=== PATIENT | male | born 1955 | race African-American/Black ===

== ENCOUNTER 2019-07-25 17:23 | Emergency (ER) | payer OTHER ==
[2019-07-25] MEDS ORDERED: Tamsulosin HCl 0.4 MG CAP ONE (17:39)
[2019-07-25 18:10] LABS: Bilirubin Negative (Negative); Blood, Urine Trace (Negative); Clarity Clear (Clear); Glucose, Urine (Dipstick) Negative (Negative); Leukocyte Negative (Negative); Nitrite Negative (Negative); Protein, Urine (Dipstick) Negative (Neg-Trace); Urobilinogen 0.2 mg/dL (Less than 2)
[2019-07-25 18:14] LABS: Bacteria/HPF Rare-Few HPF (None Seen); Squamous Epithelial 0-3 HPF (0-3); WBC/HPF None Seen HPF (0-3)
[2019-07-25] MEDS ORDERED: Amlodipine 5 MG TAB ONE (18:20)
== END 2019-07-25 19:25 ==
LOC: MADERS 17:23
DX: R33.9 Retention of urine, unspecified (principal); I10 Essential (primary) hypertension; Z79.899 Other long term (current) drug therapy
CPT/HCPCS: 51701; 81003; 81015

== ENCOUNTER 2019-07-26 09:13 | Emergency (ER) | payer OTHER ==
[2019-07-26] MEDS ORDERED: Tamsulosin HCl 0.4 MG CAP ONE (10:16)
[2019-07-26 10:33] LABS: Bilirubin Negative (Negative); Blood, Urine Small (Negative); Glucose, Urine (Dipstick) Negative (Negative); Leukocyte Negative (Negative); Nitrite Negative (Negative); Protein, Urine (Dipstick) Negative (Neg-Trace); Urobilinogen 0.2 mg/dL (Less than 2)
[2019-07-26 10:34] LABS: Clarity Hazy (Clear)
[2019-07-26 10:38] LABS: Bacteria/HPF Rare-Few HPF (None Seen); RBC/HPF 21-50 HPF (0-3); Squamous Epithelial 0-3 HPF (0-3); WBC/HPF 0-3 HPF (0-3)
== END 2019-07-26 10:15 | disposition home or self-care (01) ==
LOC: MADERS 09:13
DX: N40.1 Benign prostatic hyperplasia with lower urinary tract symptoms (principal); N13.8 Other obstructive and reflux uropathy; R33.8 Other retention of urine; I10 Essential (primary) hypertension
CPT/HCPCS: 51702; 81001; 81003; 87086

== ENCOUNTER 2023-03-14 12:06 | Emergency (ER) | payer SELFPAY ==
[2023-03-14 13:28] LABS: Anion Gap 18 mmol/L (10-20); BUN (Urea Nitrogen) 26 mg/dL (8.4-25.7); Calc. Creatinine Clearance 0 mL/min (70-130); Calcium 8.8 mg/dL (7.8-10.44); Carbon Dioxide 25 mmol/L (23-31); Chloride 90 mmol/L (98-107); Estimated GFR 54; Glucose 91 mg/dL (80-115); Sodium 129 mmol/L (136-145)
[2023-03-14 13:29] LABS: Bilirubin Negative (Negative); Blood, Urine Moderate (Negative); Clarity Clear (Clear); Glucose, Urine (Dipstick) Negative (Negative); Ketone, Urine 15 mg/dL (Negative); Leukocyte Negative (Negative); Nitrite Negative (Negative); Protein, Urine (Dipstick) > or equal to 300 mg/dL (Neg-Trace); Specific Gravity, Urine 1.025 (1.005-1.030); Urobilinogen 0.2 mg/dL (Less than 2)
[2023-03-14 13:38] LABS: Band 9 % (5-11); Eosinophils 3 % (0-10); Hematocrit 53.5 % (42.0-52.0); Hemoglobin 16.7 g/dL (14.0-18.0); Lymphocytes 24 % (21-51); MDiff Complete? YES; Manual Diff?? YES; Mean Corpuscular HGB CONC 31.5 g/dL (32.0-36.0); Mean Corpuscular Hemoglobin 29.8 pg (27.0-31.0); Mean Corpuscular Volume 94.4 fl (78.0-98.0); Monocytes 9 % (0-10); Neutrophil 53 % (42-75); Platelet Count 79 10x3/uL (130-400); RBC Distribution Width 12.6 % (11.5-14.5); Red Blood Cell (RBC) Count 5.61 mill/uL (4.70-6.10); White Blood Cell (WBC) Count 2.7 10x3/uL (4.8-10.8)
[2023-03-14 13:39] LABS: Platelet Adequacy Comment Appears Decreased; RBC Morph Comment Within Normal Limits; Reactive Lymphocytes 2 % (0-10)
[2023-03-14] MEDS ORDERED: Sodium Chloride 0.9% 1,000 ML ONE (13:39)
[2023-03-14 13:43] LABS: Bacteria/HPF Rare-Few HPF (None Seen); CAUTI Indications for Culture Dysuria,urgency,freq; RBC/HPF 0-3 HPF (0-3); Squamous Epithelial 0-3 HPF (0-3); Urine Culture Reflex No No; WBC/HPF None Seen HPF (0-3)
== END 2023-03-14 17:00 | disposition home or self-care (01) ==
LOC: MADERS 12:06
DX: J10.1 Influenza due to other identified influenza virus with other respiratory manifestations (principal); E86.0 Dehydration; E87.1 Hypo-osmolality and hyponatremia; I10 Essential (primary) hypertension
CPT/HCPCS: 36415; 80048; 81001; 83605; 85025; 87804; 96360; J7050

== ENCOUNTER 2023-08-26 14:39 | Emergency (ER) | payer SELFPAY ==
[~2023-08-26 14:39] MED LIST: Iopamidol 370 76% 100 ML VIAL ONE
[2023-08-26] MEDS ORDERED: Sodium Chloride 0.9% 500 ML ONE (15:00)
[2023-08-26 15:24] LABS: Amphetamine Not Detected (NotDetected); Barbiturates Screen Not Detected (NotDetected); Benzodiazepine Screen Not Detected (NotDetected); Cocaine Metabolite Screen Detected (NotDetected); Methadone Not Detected (NotDetected); Methamphetamine Not Detected (NotDetected); Opiate Screen Not Detected (NotDetected); Oxycodone Screen Not Detected (NotDetected); Phencyclidine (PCP) Not Detected (NotDetected); THC/Cannabinoid Screen Not Detected (NotDetected); Tricyclic Screen Not Detected (NotDetected)
[2023-08-26 15:27] LABS: ALT (SGPT) 17 U/L (8-55); AST (SGOT) 23 U/L (5-34); Albumin 4.5 g/dL (3.4-4.8); Alkaline Phosphatase 102 U/L (40-110); Anion Gap 18 mmol/L (10-20); BUN (Urea Nitrogen) 19 mg/dL (8.4-25.7); Bilirubin, Total 1.3 mg/dL (0.2-1.2); Calc. Creatinine Clearance 0 mL/min (70-130); Calcium 10.1 mg/dL (7.8-10.44); Carbon Dioxide 28 mmol/L (23-31); Chloride 95 mmol/L (98-107); Estimated GFR 60; Globulin 3.5 g/dL (2.4-3.5); Glucose 127 mg/dL (80-115); Potassium 4.8 mmol/L (3.5-5.1); Sodium 136 mmol/L (136-145)
[2023-08-26 15:29] LABS: Acetaminophen Less than 10 mcg/mL (10.0-30.0); Alcohol Less than 10.0 mg/dL (Less than 10); Lipase 22 U/L (8-78); Magnesium 1.8 mg/dL (1.6-2.6); Salicylate Less than 8.0 mg/dL (15.0-30.0)
[2023-08-26 15:37] LABS: Hematocrit 50.7 % (42.0-52.0); Hemoglobin 15.2 g/dL (14.0-18.0); Mean Corpuscular Hemoglobin 28.2 pg (27.0-31.0); Mean Corpuscular Volume 93.8 fl (78.0-98.0); Mean Platelet Volume 6.4 fL (7.4-10.4); Platelet Count 322 10x3/uL (130-400); Red Blood Cell (RBC) Count 5.41 mill/uL (4.70-6.10); White Blood Cell (WBC) Count 5.7 10x3/uL (4.8-10.8)
[2023-08-26 15:44] LABS: Band 1 % (5-11); Lymphocytes 12 % (21-51); MDiff Complete? YES; Manual Diff?? YES; Monocytes 5 % (0-10); Neutrophil 75 % (42-75); Reactive Lymphocytes 7 % (0-10)
[2023-08-26 15:45] LABS: Platelet Adequacy Comment Appears Adequate; RBC Morph Comment Within Normal Limits
[2023-08-26] MEDS ORDERED: Magnesium 2 GM/50 ML BAG (IN WATER) ONE (15:46)
[2023-08-26] MEDS ORDERED: Pantoprazole 40 MG VIAL ONE (17:30)
[2023-08-26] MEDS ORDERED: Mag-Al Plus 1200/1200/120 MG (30 mL) UDCUP ONE (17:44)
[2023-08-26] MEDS ORDERED: Lidocaine 2% Viscous 100 ML BOTTLE ONE (17:44)
[2023-08-26 17:56] LABS: Lactic Acid 1.3 mmol/L (0.5-2.2)
[2023-08-26 18:43] LABS: Troponin I 0.039 ng/mL (< 0.028)
[2023-08-26 18:46] LABS: Troponin I 0.027 ng/mL (< 0.028)
== END 2023-08-26 19:46 | disposition home or self-care (01) ==
LOC: MADERS 14:39
DX: K29.70 Gastritis, unspecified, without bleeding (principal); R11.2 Nausea with vomiting, unspecified; I10 Essential (primary) hypertension; N40.0 Benign prostatic hyperplasia without lower urinary tract symptoms; R94.31 Abnormal electrocardiogram [ECG] [EKG]; F14.10 Cocaine abuse, uncomplicated
CPT/HCPCS: 36415; 74177; 80053; 80306; 80307; 83605; 83690; 83735; 83880; 84484; 85025; 93005; 96365; 96366; 96375; C9113; J3475; J7030; Q9967

== ENCOUNTER 2024-01-16 09:44 | Emergency (ER) | payer MEDICARE, OTHER ==
[2024-01-16] MEDS ORDERED: Dicyclomine 20 MG/2 ML VIAL ONE (10:06)
[2024-01-16] MEDS ORDERED: hydrALAZINE 20 MG/ML VIAL ONE (10:06)
[2024-01-16 11:08] LABS: ALT (SGPT) 16 U/L (8-55); AST (SGOT) 20 U/L (5-34); Albumin 4.7 g/dL (3.4-4.8); Alkaline Phosphatase 98 U/L (40-110); Anion Gap 23 mmol/L (10-20); BUN (Urea Nitrogen) 16 mg/dL (8.4-25.7); Bilirubin, Total 1.4 mg/dL (0.2-1.2); Calc. Creatinine Clearance 0 mL/min (70-130); Calcium 10.2 mg/dL (7.8-10.44); Carbon Dioxide 25 mmol/L (23-31); Chloride 91 mmol/L (98-107); Estimated GFR 62; Globulin 4.5 g/dL (2.4-3.5); Glucose 140 mg/dL (80-115); Lipase 6 U/L (8-78); Protein, Total 9.2 g/dL (5.8-8.1); Sodium 135 mmol/L (136-145)
[2024-01-16 11:11] LABS: Hematocrit 49.7 % (42.0-52.0); Hemoglobin 15.5 g/dL (14.0-18.0); Mean Corpuscular HGB CONC 31.1 g/dL (32.0-36.0); Mean Corpuscular Hemoglobin 29.7 pg (27.0-31.0); Mean Corpuscular Volume 95.5 fl (78.0-98.0); Mean Platelet Volume 7.2 fL (7.4-10.4); Platelet Count 381 10x3/uL (130-400); RBC Distribution Width 13.5 % (11.5-14.5); Red Blood Cell (RBC) Count 5.21 mill/uL (4.70-6.10); White Blood Cell (WBC) Count 25.4 10x3/uL (4.8-10.8)
[2024-01-16 11:13] LABS: MDiff Complete? YES; Manual Diff?? YES; Monocytes 3 % (0-10); Neutrophil 95 % (42-75); Reactive Lymphocytes 2 % (0-10)
[2024-01-16 11:14] LABS: Platelet Adequacy Comment Appears Adequate; RBC Morph Comment Within Normal Limits
[2024-01-16 11:18] LABS: Bilirubin Negative (Negative); Blood, Urine Large (Negative); Glucose, Urine (Dipstick) 100 mg/dL (Negative); Ketone, Urine Negative (Negative); Leukocyte Negative (Negative); Nitrite Negative (Negative); Protein, Urine (Dipstick) > or equal to 300 mg/dL (Neg-Trace); Urobilinogen 0.2 mg/dL (Less than 2)
[2024-01-16 11:20] LABS: Specific Gravity, Urine 1.013 (1.002-1.036)
[2024-01-16 11:21] LABS: Clarity Cloudy (Clear)
[2024-01-16 11:30] LABS: CAUTI Indications for Culture Pelvic or flank pain; WBC/HPF 0-3 HPF (0-3)
[2024-01-16 11:31] LABS: Bacteria/HPF Rare-Few HPF (None Seen); Mucous/LPF 2+ LPF (<2+); Squamous Epithelial 0-3 HPF (0-3)
[2024-01-16 11:32] LABS: Urine Culture Reflex No No
[2024-01-16] MEDS ORDERED: Piperacillin/Tazobactam 4.5 GM VIAL ONE (12:18)
[2024-01-16] MEDS ORDERED: Labetalol HCl 100 MG/20 ML VIAL ONE (12:18)
[2024-01-16] MEDS ORDERED: Morphine 4 MG/ML VIAL ONE (12:34)
[2024-01-16 13:50] LABS: Critical Call Chem-Lactate NUR.MB22@1349
== END 2024-01-16 15:41 | disposition short-term general hospital (02) ==
LOC: MADERS 09:44
DX: A41.9 Sepsis, unspecified organism (principal); I10 Essential (primary) hypertension
CPT/HCPCS: 36415; 74174; 80053; 81001; 83605; 83690; 85025; 87040; 93005; 96361; 96365; 96372; 96375; J0360; J2272; J2543; Q9967